=== PATIENT | female | born 1965 | race African-American/Black ===

== ENCOUNTER 2022-03-14 16:25 | Emergency (ER) | payer OTHER ==
[~2022-03-14] VITALS: Ht 157.5 cm; Wt 65.8 kg
--- NOTE | 2022-03-14 16:45 | NUR ---
Dr Hernandez at the bedside for MSE.
[2022-03-14] MEDS ORDERED: diphenhydrAMINE 25 MG CAP PO ONE ×4 (16:52→18:30)
[2022-03-14] MEDS ORDERED: HYDROCODONE/APAP 10-325 MG TABLET ONE (16:52)
[2022-03-14] MEDS ORDERED: KETOROLAC TROMETHAMINE 30 MG INJ ONE (16:52)
[2022-03-14] MEDS ORDERED: KETOROLAC TROMETHAMINE 30 MG INJ IM ONE (17:00)
[2022-03-14] MEDS ORDERED: HYDROCODONE/APAP 10-325 MG TABLET PO ONE (17:00)
--- NOTE | 2022-03-14 18:20 | NUR ---
Pt has red rash of neck and upper chest, Dr Hernandez aware and Bendryl ordered.
[2022-03-14] MEDS ORDERED: HYDR-3980 PO (18:23)
[2022-03-14] MEDS ORDERED: predniSONE 50 MG TABLET PO ONE (18:30)
[2022-03-14] MEDS ORDERED: predniSONE 50 MG TABLET ONE (18:32)
[2022-03-14] MEDS ORDERED: predniSONE 10 MG TABLET ONE (18:33)
--- NOTE | 2022-03-14 18:39 | NUR ---
Noted decreased redness of neck and upper chest, Pt denies shortness of breath/difficulty speaking or speaking. Pt's in the room.
[2022-03-14] MEDS ORDERED: PRED50TA PO (18:44)
[2022-03-14] MEDS ORDERED: DIPH-588 PO (18:47)
[2022-03-14] MEDS ORDERED: EPIN0.3A4 IM (18:56)
--- NOTE | 2022-03-14 18:56 | NUR ---
Pt's hives on neck/upper chest is completely disapeared. Dr cruz in the room re evaluating the pt.
--- NOTE | 2022-03-14 19:03 | NUR ---
Patient discharged to home in stable condition. Written and verbal after care instructions given. Patient verbalizes understanding of instructions. Stressed follow up or return to ER for worsening s/s.
[2022-03-14 19:04] VITALS: BP 112/67
== END 2022-03-14 19:04 | disposition home or self-care (01) ==
LOC: ER 16:27
DX: M16.11 Unilateral primary osteoarthritis, right hip (principal); Z88.0 Allergy status to penicillin; Z88.2 Allergy status to sulfonamides; Z88.8 Allergy status to other drugs, medicaments and biological substances
CPT/HCPCS: 72170; 96372; 99284; J1885; J7512 ×2; Q0163 ×2; A4663

== ENCOUNTER 2024-07-24 12:55 | Emergency (ER) | payer SELFPAY ==
[~2024-07-24] VITALS: Ht 157.5 cm; Wt 77.1 kg
[~2024-07-24 12:55] MED LIST: DIPH-588 PO; EPIN0.3A4 IM; HYDR-3980 PO; PRED50TA PO
[2024-07-24] MEDS ORDERED: AMLO5TAB4 PO ×2 (13:40→14:36)
[2024-07-24] MEDS ORDERED: PREG25CA19 PO (13:40)
[2024-07-24] MEDS ORDERED: TRAZ-252 PO (13:40)
[2024-07-24] MEDS ORDERED: DIVA125T2 PO (13:40)
[2024-07-24] MEDS ORDERED: DIVA500T2 PO ×2 (13:51→14:36)
[2024-07-24] MEDS ORDERED: PREG50CA PO ×2 (13:51→14:36)
[2024-07-24] MEDS ORDERED: LORAZEPAM 0.5 MG TABLET ONE (13:54)
[2024-07-24] MEDS ORDERED: PREGABALIN 25 MG CAPSULE ONE (13:55)
[2024-07-24] MEDS ORDERED: AMLODIPINE 5 MG TABLET ONE (13:55)
[2024-07-24 14:00] LABS: BASOPHILS # (AUTO) 0.1 K/UL (0.0-0.2); BASOPHILS % (AUTO) 1.9 % (0.0-2.0); EOSINOPHILS # (AUTO) 0.1 K/uL (0.0-0.7); EOSINOPHILS % (AUTO) 2.1 % (0.0-7.0); HEMATOCRIT 41.2 % (31.2-41.9); HEMOGLOBIN 13.7 g/dL (10.9-14.3); LYMPHOCYTES # (AUTO) 0.9 K/uL (0.8-4.8); MEAN CORPUSCULAR HEMOGLOBIN 31.3 uug (24.7-32.8); MEAN CORPUSCULAR HGB CONC 33 g/dL (32.3-35.6); MEAN CORPUSCULAR VOLUME 94.5 fL (75.5-95.3); MONOCYTES # (AUTO) 0.3 K/uL (0.1-1.30); MONOCYTES % (AUTO) 4.9 % (0.0-11.0); NEUTROPHILS # (AUTO) 5.3 K/uL (1.8-8.9); NEUTROPHILS % (AUTO) 78.1 % (38.5-71.5); PLATELET COUNT (AUTO) 317 K/uL (179-408); RED BLOOD CELL COUNT(AUTO) 4.36 MIL/uL (3.63-4.92); RED CELL DISTRIBUTION WIDTH 14.9 % (12.3-17.7); WHITE BLOOD COUNT (AUTO) 6.7 K/uL (3.8-11.8)
[2024-07-24 14:04] LABS: *BILIRUBIN,URIN NEGATIVE (NEGATIVE); *BLOOD, URINE NEGATIVE (NEGATIVE); *CLARITY,URINE CLEAR (CLEAR); *COLOR,URINE YELLOW (YELLOW); *KETONES,URINE NEGATIVE (NEGATIVE); *PROTEIN,URINE NEGATIVE (NEGATIVE); *UROBILINOGEN,URINE 0.2 E.U./dl (NORMAL); LEUKOCYTE ESTERASE ,URINE NEGATIVE (NEGATIVE); NITRITE, URINE NEGATIVE (NEGATIVE); PH,URINE 8.5 (5.0-8.0); UGLUCOSE NEGATIVE (NEGATIVE)
[2024-07-24] MEDS: PREGABALIN 25 MG CAPSULE PO ONE (14:04)
[2024-07-24] MEDS: LORAZEPAM 0.5 MG TABLET PO ONE (14:04)
[2024-07-24] MEDS: AMLODIPINE 5 MG TABLET PO ONE (14:06)
[2024-07-24 14:10] LABS: CALCIUM 9.4 mg/dL (8.5-10.1); CREATININE 0.6 mg/dL (0.6-1.3)
[2024-07-24] MEDS: VALPROIC ACID 250 MG CAPSULE PO ONE (14:12)
[2024-07-24 14:14] LABS: DIFFERENTIAL COMMENT 1
[2024-07-24 14:16] LABS: ALBUMIN 3.7 g/dL (3.4-5.0); BILIRUBIN,DIRECT 0.1 mg/dL (0.0-0.2); BILIRUBIN,TOTAL 0.3 mg/dL (0.2-1.0); TOTAL PROTEIN, SERUM 6.4 g/dL (6.4-8.2)
[2024-07-24] MEDS ORDERED: TRAZ-182 PO (14:36)
[2024-07-24 14:50] VITALS: BP 140/88; TEMP 97.8; O2SAT 100
== END 2024-07-24 14:57 | disposition home or self-care (01) ==
LOC: ER 12:56
DX: R51.9 Headache, unspecified (principal); Z76.0 Encounter for issue of repeat prescription; J45.909 Unspecified asthma, uncomplicated; G35 Multiple sclerosis; Z96.641 Presence of right artificial hip joint; Z79.52 Long term (current) use of systemic steroids; Z79.899 Other long term (current) drug therapy; Z88.0 Allergy status to penicillin; Z88.2 Allergy status to sulfonamides; Z88.5 Allergy status to narcotic agent; Z88.7 Allergy status to serum and vaccine
CPT/HCPCS: 36415; 85025; A4606; A4663

== ENCOUNTER 2024-07-31 21:20 | Inpatient (IN) | payer MEDICAID ==
[~2024-07-31] VITALS: Ht 157.5 cm; Wt 77.1 kg
[~2024-07-31 21:20] MED LIST changes: +AMLO5TAB4 PO; +DIVA500T2 PO; +PREG50CA PO; +TRAZ-182 PO; +TRAZ-252 PO
[2024-07-31] MEDS ORDERED: MORPHINE SULFATE 2 MG/1 ML DISP.SYRIN ONE (22:09)
[2024-07-31] MEDS ORDERED: ONDANSETRON 4 MG/2 ML VIAL ONE (22:09)
[2024-07-31] MEDS: MORPHINE SULFATE 2 MG/1 ML DISP.SYRIN IV ONE (22:15)
[2024-07-31] MEDS: ONDANSETRON 4 MG/2 ML VIAL IV ONE (22:15)
[2024-07-31 22:18] LABS: *BILIRUBIN,URIN NEGATIVE (NEGATIVE); *BLOOD, URINE NEGATIVE (NEGATIVE); *CLARITY,URINE SLIGHTLY CLOUDY (CLEAR); *COLOR,URINE YELLOW (YELLOW); *KETONES,URINE 1+ (NEGATIVE); *PROTEIN,URINE NEGATIVE (NEGATIVE); *UROBILINOGEN,URINE 0.2 E.U./dl (NORMAL); LEUKOCYTE ESTERASE ,URINE TRACE (NEGATIVE); NITRITE, URINE NEGATIVE (NEGATIVE); UGLUCOSE NEGATIVE (NEGATIVE)
[2024-07-31 22:22] LABS: BASOPHILS % (AUTO) 0.5 % (0.0-2.0); CALCIUM 9.9 mg/dL (8.5-10.1); CREATININE 0.8 mg/dL (0.6-1.3); EOSINOPHILS # (AUTO) 0.2 K/uL (0.0-0.7); EOSINOPHILS % (AUTO) 2.3 % (0.0-7.0); HEMATOCRIT 45.6 % (31.2-41.9); HEMOGLOBIN 15.1 g/dL (10.9-14.3); LYMPHOCYTES # (AUTO) 1.6 K/uL (0.8-4.8); LYMPHOCYTES % (AUTO) 23.2 % (20.5-51.5); MEAN CORPUSCULAR HEMOGLOBIN 31.3 uug (24.7-32.8); MEAN CORPUSCULAR HGB CONC 33 g/dL (32.3-35.6); MEAN CORPUSCULAR VOLUME 94.6 fL (75.5-95.3); MONOCYTES # (AUTO) 0.8 K/uL (0.1-1.30); NEUTROPHILS # (AUTO) 4.3 K/uL (1.8-8.9); PLATELET COUNT (AUTO) 335 K/uL (179-408); POTASSIUM 3.3 mmol/L (3.5-5.1); RED BLOOD CELL COUNT(AUTO) 4.82 MIL/uL (3.63-4.92); RED CELL DISTRIBUTION WIDTH 14.9 % (12.3-17.7); WHITE BLOOD COUNT (AUTO) 6.8 K/uL (3.8-11.8)
[2024-07-31 22:23] LABS: DIFFERENTIAL COMMENT 1
[2024-07-31 22:28] LABS: ALBUMIN 4.2 g/dL (3.4-5.0); BILIRUBIN,TOTAL 0.4 mg/dL (0.2-1.0); TOTAL PROTEIN, SERUM 7.6 g/dL (6.4-8.2)
[2024-07-31 22:30] LABS: *AMPHETAMINE, URINE NEGATIVE (NEGATIVE); *BARBITURATE, URINE NEGATIVE (NEGATIVE); *BENZODIAZEPINE, URINE NEGATIVE (NEGATIVE); *CANNABINOID, URINE NEGATIVE (NEGATIVE); *COCCAINE, URINE NEGATIVE (NEGATIVE); *OPIATE, URINE NEGATIVE (NEGATIVE); *PHENCYCLIDINE SCREEN,URINE NEGATIVE (NEGATIVE); FENTANYL, URINE NEGATIVE (NEGATIVE)
[2024-07-31 22:34] LABS: BACTERIA,URINE FEW /HPF (NONE SEEN); SQUAMOUS EPITHELIAL CELL,UR FEW /HPF (NONE SEEN); URINE AMORPHOUS URATE MODERATE /HPF; WBC,URINE 0-3 /HPF (0-3)
[2024-07-31 22:35] LABS: RBC,URINE NONE SEEN /HPF (0-3)
[2024-08-01] MEDS ORDERED: KETOROLAC TROMETHAMINE 30 MG INJ ONE (00:51)
[2024-08-01] MEDS: KETOROLAC TROMETHAMINE 30 MG INJ IVP ONE (00:57)
[2024-08-01] MEDS: IV NS 1000 ML 1,000 ML IV ONE (00:57)
[2024-08-01] MEDS ORDERED: GABA-532 PO (02:40)
[2024-08-01] MEDS ORDERED: GABAPENTIN 300 MG CAPSULE ONE (02:54)
[2024-08-01] MEDS: GABAPENTIN 300 MG CAPSULE PO ONE (02:57)
[2024-08-01] MEDS: POTASSIUM CHLORIDE 20 MEQ POWDER PACKET PO ONE ×2 (03:00→05:01)
[2024-08-01] MEDS ORDERED: ONDANSETRON 4 MG/2 ML VIAL IV PRN (03:00)
[2024-08-01] MEDS ORDERED: MAGNESIUM HYDROXIDE 30 ML LIQUID UDC PO PRN (03:00)
[2024-08-01] MEDS ORDERED: HYDROCODONE/APAP 10-325 MG TABLET PO PRN (03:00)
[2024-08-01 04:29] VITALS: BP 129/83; TEMP 98.1; O2SAT 95
[2024-08-01] MEDS: IV D5W 1000ML 1,000 ML IV SCH (04:30)
[2024-08-01 06:00] VITALS: BP 103/66; TEMP 97.5; O2SAT 94
[2024-08-01] MEDS: AMLODIPINE 5 MG TABLET PO SCH (08:11)
[2024-08-01] MEDS: GABAPENTIN 100 MG CAPSULE PO SCH (08:11)
[2024-08-01] MEDS: DIVALPROEX 500 MG TABLET.DR PO SCH (08:11)
[2024-08-01] MEDS ORDERED: MELA3CAP2 PO (09:53)
[2024-08-01] MEDS ORDERED: TRAZ-182 PO (11:17)
[2024-08-01 11:39] VITALS: BP 112/68; TEMP 98.4; O2SAT 96
[2024-08-01 12:18] LABS: CALCIUM 9.5 mg/dL (8.5-10.1); CREATININE 0.6 mg/dL (0.6-1.3); POTASSIUM 4.4 mmol/L (3.5-5.1)
[2024-08-01] MEDS ORDERED: methylPREDNISolone SOD SUCC 1,000 MG in IV DEXTROSE 5% 250 ML IV SCH ×2 (15:45→16:00)
[2024-08-01 16:25] VITALS: BP 100/71; TEMP 98.4; O2SAT 94
[2024-08-01] MEDS: methylPREDNISolone SOD SUCC 1,000 MG in IV DEXTROSE 5% 250 ML IV SCH (16:44)
[2024-08-01] MEDS ORDERED: TRAZODONE 50 MG TABLET PO SCH (18:00)
[2024-08-01 20:00] VITALS: BP 129/78; TEMP 98.8; O2SAT 94
[2024-08-01] MEDS: MELATONIN 3 MG TABLET PO SCH (20:47)
[2024-08-01] MEDS: MORPHINE SULFATE 2 MG/1 ML DISP.SYRIN IV PRN (21:30)
[2024-08-01] MEDS: TRAZODONE 50 MG TABLET PO PRN (21:51)
[2024-08-02 06:00] VITALS: BP 141/82; TEMP 98.8; O2SAT 95
[2024-08-02 07:00] LABS: HEMATOCRIT 43.2 % (31.2-41.9); HEMOGLOBIN 14.5 g/dL (10.9-14.3); LYMPHOCYTES # (AUTO) 0.7 K/uL (0.8-4.8); LYMPHOCYTES % (AUTO) 8.7 % (20.5-51.5); MEAN CORPUSCULAR HGB CONC 34 g/dL (32.3-35.6); MONOCYTES % (AUTO) 0.5 % (0.0-11.0); NEUTROPHILS # (AUTO) 7.4 K/uL (1.8-8.9); NEUTROPHILS % (AUTO) 90.8 % (38.5-71.5); PLATELET COUNT (AUTO) 301 K/uL (179-408); RED BLOOD CELL COUNT(AUTO) 4.54 MIL/uL (3.63-4.92); RED CELL DISTRIBUTION WIDTH 14.3 % (12.3-17.7); WHITE BLOOD COUNT (AUTO) 8.1 K/uL (3.8-11.8)
[2024-08-02 07:16] LABS: DIFFERENTIAL COMMENT 1
[2024-08-02 08:03] LABS: MAGNESIUM 2.2 mg/dL (1.8-2.4)
[2024-08-02 08:28] LABS: CALCIUM 10.4 mg/dL (8.5-10.1); CREATININE 0.6 mg/dL (0.6-1.3); POTASSIUM 4.8 mmol/L (3.5-5.1)
[2024-08-02 11:08] VITALS: BP 146/78; TEMP 98.8; O2SAT 98
[2024-08-02 14:12] LABS: THYROID STIMULATING HORMONE 0.228 mIU/mL (0.358-3.740)
[2024-08-02] MEDS: diphenhydrAMINE 25 MG/10 ML UDC PO PRN (14:17)
[2024-08-02 16:10] VITALS: BP 150/72; TEMP 98.6; O2SAT 99
[2024-08-02 20:00] VITALS: BP 140/69; TEMP 98.1; O2SAT 94
[2024-08-03 04:30] VITALS: BP 139/82; TEMP 98.4; O2SAT 95
[2024-08-03 06:55] LABS: HEMATOCRIT 43.3 % (31.2-41.9); HEMOGLOBIN 14.5 g/dL (10.9-14.3); LYMPHOCYTES # (AUTO) 0.6 K/uL (0.8-4.8); LYMPHOCYTES % (AUTO) 4.7 % (20.5-51.5); MEAN CORPUSCULAR HEMOGLOBIN 31.9 uug (24.7-32.8); MEAN CORPUSCULAR HGB CONC 34 g/dL (32.3-35.6); MEAN CORPUSCULAR VOLUME 95.1 fL (75.5-95.3); MONOCYTES # (AUTO) 0.1 K/uL (0.1-1.30); MONOCYTES % (AUTO) 0.9 % (0.0-11.0); NEUTROPHILS # (AUTO) 11.1 K/uL (1.8-8.9); NEUTROPHILS % (AUTO) 94.4 % (38.5-71.5); PLATELET COUNT (AUTO) 305 K/uL (179-408); RED BLOOD CELL COUNT(AUTO) 4.55 MIL/uL (3.63-4.92); RED CELL DISTRIBUTION WIDTH 14.6 % (12.3-17.7); WHITE BLOOD COUNT (AUTO) 11.8 K/uL (3.8-11.8)
[2024-08-03 07:12] LABS: CALCIUM 10.2 mg/dL (8.5-10.1); CREATININE 0.6 mg/dL (0.6-1.3)
[2024-08-03 07:13] LABS: DIFFERENTIAL COMMENT 1
[2024-08-03 07:20] LABS: POTASSIUM 4.5 mmol/L (3.5-5.1)
[2024-08-03 11:36] VITALS: BP 149/85; TEMP 99.2; O2SAT 95
[2024-08-03] MEDS ORDERED: IBUPROFEN 400 MG TABLET PO PRN (15:15)
[2024-08-03] MEDS: ACETAMINOPHEN 325 MG TABLET PO PRN (15:32)
[2024-08-03 15:52] VITALS: BP 127/65; TEMP 98.4; O2SAT 96
[2024-08-03] MEDS: PREGABALIN 50 MG CAPSULE PO SCH (17:09)
[2024-08-03 19:00] VITALS: BP 143/85; TEMP 98; O2SAT 95
[2024-08-03] MEDS: KETOROLAC TROMETHAMINE 15 MG INJ IVP ONE (21:54)
[2024-08-04 06:00] VITALS: BP 132/78; TEMP 97.5; O2SAT 92
[2024-08-04 07:23] LABS: HEMATOCRIT 41.7 % (31.2-41.9); HEMOGLOBIN 13.8 g/dL (10.9-14.3); LYMPHOCYTES # (AUTO) 0.5 K/uL (0.8-4.8); LYMPHOCYTES % (AUTO) 4.4 % (20.5-51.5); MEAN CORPUSCULAR HEMOGLOBIN 31.3 uug (24.7-32.8); MEAN CORPUSCULAR HGB CONC 33 g/dL (32.3-35.6); MEAN CORPUSCULAR VOLUME 94.5 fL (75.5-95.3); MONOCYTES # (AUTO) 0.1 K/uL (0.1-1.30); MONOCYTES % (AUTO) 0.6 % (0.0-11.0); NEUTROPHILS # (AUTO) 11.3 K/uL (1.8-8.9); PLATELET COUNT (AUTO) 315 K/uL (179-408); RED BLOOD CELL COUNT(AUTO) 4.42 MIL/uL (3.63-4.92); RED CELL DISTRIBUTION WIDTH 14.6 % (12.3-17.7); WHITE BLOOD COUNT (AUTO) 11.9 K/uL (3.8-11.8)
[2024-08-04 08:19] LABS: DIFFERENTIAL COMMENT 1
[2024-08-04 08:31] VITALS: BP 140/76; TEMP 97.7; O2SAT 95
[2024-08-04 09:04] LABS: CALCIUM 9.5 mg/dL (8.5-10.1); CREATININE 0.7 mg/dL (0.6-1.3); POTASSIUM 4.1 mmol/L (3.5-5.1)
[2024-08-04] MEDS ORDERED: METH4TAB3 PO (09:46)
[2024-08-04 11:11] LABS: MAGNESIUM 2.2 mg/dL (1.8-2.4); PHOSPHOROUS 4.4 mg/dL (2.5-4.9)
[2024-08-04 11:45] VITALS: BP 142/67; TEMP 97.8; O2SAT 96
[2024-08-04 15:43] VITALS: BP 149/87; TEMP 97.8; O2SAT 97
[2024-08-05 09:07] LABS: METHYLMALONIC ACID 101 nmol/L (0-378)
== END 2024-08-04 16:25 | disposition home or self-care (01) | DRG 43 ==
LOC: ER 21:22 → MEDSURG3 08-01 03:35
PROVIDERS: ATTEND Nurse Practitioner Acute Care
DX: G35 Multiple sclerosis (principal); E87.0 Hyperosmolality and hypernatremia; E87.6 Hypokalemia; E86.1 Hypovolemia; J45.909 Unspecified asthma, uncomplicated; E05.90 Thyrotoxicosis, unspecified without thyrotoxic crisis or storm; R26.2 Difficulty in walking, not elsewhere classified; Z88.6 Allergy status to analgesic agent; Z88.0 Allergy status to penicillin; Z88.2 Allergy status to sulfonamides; E86.0 Dehydration; I10 Essential (primary) hypertension; Z79.899 Other long term (current) drug therapy
CPT/HCPCS: 36415; 70450; 83735; 83921; 84100; 84443; 85025; A4663; G0378; J1885; J2270; J2405; J2919; J7040; J7050; J7070; Q0163

== ENCOUNTER 2024-08-07 21:12 | Emergency (ER) | payer MEDICAID ==
[~2024-08-07] VITALS: Ht 157.5 cm; Wt 74.8 kg
[~2024-08-07 21:12] MED LIST changes: -DIPH-588 PO; -EPIN0.3A4 IM; -HYDR-3980 PO; +MELA3CAP2 PO; +METH4TAB3 PO; -PRED50TA PO; -TRAZ-252 PO
[2024-08-07 22:26] LABS: BASOPHILS % (AUTO) 0.5 % (0.0-2.0); HEMATOCRIT 44.7 % (31.2-41.9); LYMPHOCYTES % (AUTO) 12.5 % (20.5-51.5); MEAN CORPUSCULAR HEMOGLOBIN 31.6 uug (24.7-32.8); MEAN CORPUSCULAR HGB CONC 33 g/dL (32.3-35.6); MEAN CORPUSCULAR VOLUME 94.5 fL (75.5-95.3); MONOCYTES # (AUTO) 0.5 K/uL (0.1-1.30); MONOCYTES % (AUTO) 5.9 % (0.0-11.0); NEUTROPHILS # (AUTO) 6.6 K/uL (1.8-8.9); NEUTROPHILS % (AUTO) 81.1 % (38.5-71.5); PLATELET COUNT (AUTO) 310 K/uL (179-408); RED BLOOD CELL COUNT(AUTO) 4.73 MIL/uL (3.63-4.92); RED CELL DISTRIBUTION WIDTH 14.1 % (12.3-17.7); WHITE BLOOD COUNT (AUTO) 8.1 K/uL (3.8-11.8)
[2024-08-07 22:31] LABS: DIFFERENTIAL COMMENT 1
[2024-08-07] MEDS ORDERED: diphenhydrAMINE 50 MG/1 ML VIAL ONE (22:34)
[2024-08-07] MEDS ORDERED: MORPHINE SULFATE 4 MG/1 ML DISP.SYRIN ONE (22:34)
[2024-08-07 22:38] LABS: CALCIUM 9.5 mg/dL (8.5-10.1); CARBON DIOXIDE 32 mmol/L (21-32); CHLORIDE 104 mmol/L (98-107); CREATININE 0.6 mg/dL (0.6-1.3); GLUCOSE 115 mg/dL (74-106); POTASSIUM 3.5 mmol/L (3.5-5.1); SODIUM SERUM 143 mmol/L (136-145); UREA NITROGEN, BLOOD 15 mg/dL (7-18)
[2024-08-07 22:47] LABS: ALANINE AMINOTRANSFERASE 25 U/L (14-59); ALBUMIN 3.6 g/dL (3.4-5.0); ALKALINE PHOSPHATASE 94 U/L (50-136); ASPARTATE AMINOTRANSFERASE < 5 U/L (15-37); BILIRUBIN,DIRECT 0.2 mg/dL (0.0-0.2); BILIRUBIN,TOTAL 0.4 mg/dL (0.2-1.0); TOTAL PROTEIN, SERUM 6.7 g/dL (6.4-8.2)
[2024-08-07] MEDS: diphenhydrAMINE 50 MG/1 ML VIAL IV ONE (23:00)
[2024-08-07] MEDS: MORPHINE SULFATE 2 MG/1 ML DISP.SYRIN IV ONE (23:00)
[2024-08-08] MEDS ORDERED: MORP15TA PO (00:53)
[2024-08-08] MEDS: ONDANSETRON 4 MG/2 ML VIAL IV ONE (01:00)
[2024-08-08] MEDS: MORPHINE SULFATE 4 MG/1 ML DISP.SYRIN IV ONE ×2 (01:00→02:49)
[2024-08-08] MEDS ORDERED: ONDANSETRON 4 MG/2 ML VIAL ONE (01:00)
[2024-08-08] MEDS ORDERED: MORPHINE SULFATE 4 MG/1 ML DISP.SYRIN ONE ×2 (01:01→02:44)
[2024-08-08] MEDS: diphenhydrAMINE 50 MG/1 ML VIAL IV ONE ×2 (02:15→02:49)
[2024-08-08] MEDS ORDERED: diphenhydrAMINE 50 MG/1 ML VIAL ONE ×2 (02:16→02:46)
[2024-08-08 03:52] VITALS: BP 128/100; TEMP 98.2; O2SAT 99
== END 2024-08-08 03:00 | disposition home or self-care (01) ==
LOC: ER 21:13
DX: R51.9 Headache, unspecified (principal); R42 Dizziness and giddiness; J45.909 Unspecified asthma, uncomplicated; G35 Multiple sclerosis; I10 Essential (primary) hypertension; Z79.899 Other long term (current) drug therapy; Z79.52 Long term (current) use of systemic steroids; Z88.0 Allergy status to penicillin; Z88.2 Allergy status to sulfonamides; Z88.5 Allergy status to narcotic agent; Z88.7 Allergy status to serum and vaccine
CPT/HCPCS: 99285; 96374; 71045; 96375; 80076; 80048; 85025; 85730; 84484; 36415; 93005; 96376; J1200 ×3; J2270 ×3; J2405; A4606; A4663

== ENCOUNTER 2024-08-31 21:20 | Emergency (ER) | payer BC, MEDICAID ==
[~2024-08-31] VITALS: Ht 157.5 cm; Wt 74.8 kg
[~2024-08-31 21:20] MED LIST changes: +MORP15TA PO
[2024-08-31] MEDS ORDERED: KETOROLAC TROMETHAMINE 15 MG INJ ONE (23:01)
[2024-08-31 23:39] LABS: BASOPHILS % (AUTO) 0.7 % (0.0-2.0); EOSINOPHILS # (AUTO) 0.1 K/uL (0.0-0.7); EOSINOPHILS % (AUTO) 1.2 % (0.0-7.0); HEMATOCRIT 40.7 % (31.2-41.9); HEMOGLOBIN 13.7 g/dL (10.9-14.3); LYMPHOCYTES # (AUTO) 1.9 K/uL (0.8-4.8); LYMPHOCYTES % (AUTO) 35.7 % (20.5-51.5); MEAN CORPUSCULAR HGB CONC 34 g/dL (32.3-35.6); MONOCYTES # (AUTO) 0.8 K/uL (0.1-1.30); MONOCYTES % (AUTO) 14.6 % (0.0-11.0); NEUTROPHILS # (AUTO) 2.5 K/uL (1.8-8.9); NEUTROPHILS % (AUTO) 47.8 % (38.5-71.5); PLATELET COUNT (AUTO) 306 K/uL (179-408); RED BLOOD CELL COUNT(AUTO) 4.28 MIL/uL (3.63-4.92); RED CELL DISTRIBUTION WIDTH 15.1 % (12.3-17.7); WHITE BLOOD COUNT (AUTO) 5.2 K/uL (3.8-11.8)
[2024-08-31] MEDS: IV NORMAL SALINE 500 ML IV ONE (23:51)
[2024-08-31] MEDS: KETOROLAC TROMETHAMINE 15 MG INJ IVP ONE (23:52)
[2024-09-01] MEDS ORDERED: GABAPENTIN 300 MG CAPSULE ONE (00:09)
[2024-09-01 00:10] LABS: *BILIRUBIN,URIN NEGATIVE (NEGATIVE); *BLOOD, URINE NEGATIVE (NEGATIVE); *CLARITY,URINE CLEAR (CLEAR); *COLOR,URINE YELLOW (YELLOW); *KETONES,URINE 1+ (NEGATIVE); *PROTEIN,URINE NEGATIVE (NEGATIVE); *UROBILINOGEN,URINE 0.2 E.U./dl (NORMAL); LEUKOCYTE ESTERASE ,URINE NEGATIVE (NEGATIVE); NITRITE, URINE NEGATIVE (NEGATIVE); PH,URINE 6.5 (5.0-8.0); UGLUCOSE NEGATIVE (NEGATIVE)
[2024-09-01] MEDS: GABAPENTIN 300 MG CAPSULE PO ONE (00:14)
[2024-09-01 00:28] LABS: BACTERIA,URINE FEW /HPF (NONE SEEN); RBC,URINE 0-3 /HPF (0-3); WBC,URINE NONE SEEN /HPF (0-3)
[2024-09-01 00:29] LABS: CALCIUM OXALATE CRYSTALS,UR MANY /HPF (NONE SEEN); SQUAMOUS EPITHELIAL CELL,UR NONE SEEN /HPF (NONE SEEN); URIC ACID CRYSTALS,URINE RARE /HPF (NONE SEEN)
[2024-09-01 00:30] LABS: MUCUS,URINE FEW /LPF (0-FEW); WAXY CASTS,URINE 0-3 /LPF (NONE SEEN)
[2024-09-01 00:34] LABS: ALBUMIN 3.6 g/dL (3.4-5.0); BILIRUBIN,TOTAL 0.3 mg/dL (0.2-1.0); CALCIUM 9.6 mg/dL (8.5-10.1); CREATININE 0.8 mg/dL (0.6-1.3); MAGNESIUM 2.3 mg/dL (1.8-2.4); POTASSIUM 4.5 mmol/L (3.5-5.1); TOTAL PROTEIN, SERUM 6.7 g/dL (6.4-8.2)
[2024-09-01 00:36] LABS: C-REACTIVE PROTEIN 0.43 mg/dL (0.00-0.30)
[2024-09-01 00:57] LABS: THYROID STIMULATING HORMONE 2.527 mIU/mL (0.358-3.740)
[2024-09-01] MEDS ORDERED: MORP15TA PO (01:29)
[2024-09-01 02:13] VITALS: BP 128/82; TEMP 98.1; O2SAT 98
== END 2024-09-01 02:14 | disposition home or self-care (01) ==
LOC: ER 21:20
DX: M79.18 Myalgia, other site (principal); M79.606 Pain in leg, unspecified; R53.1 Weakness; R11.0 Nausea; R42 Dizziness and giddiness; R94.31 Abnormal electrocardiogram [ECG] [EKG]; G35 Multiple sclerosis; J45.909 Unspecified asthma, uncomplicated; Z79.899 Other long term (current) drug therapy; Z88.0 Allergy status to penicillin; Z88.2 Allergy status to sulfonamides; Z88.5 Allergy status to narcotic agent; Z88.7 Allergy status to serum and vaccine
CPT/HCPCS: 99285; 96374; 70450; 96361; 80053; 81001; 83880; 83735; 84443; 85025; 86140; 84484; 36415; 93005; J1885; J7040; A4606; A4663

== ENCOUNTER 2025-01-01 13:48 | Inpatient (IN) | payer BC ==
[~2025-01-01] VITALS: Ht 157.5 cm; Wt 72.6 kg
[2025-01-01 14:30] LABS: BASOPHILS # (AUTO) 0.1 K/UL (0.0-0.2); BASOPHILS % (AUTO) 0.3 % (0.0-2.0); EOSINOPHILS % (AUTO) 0.1 % (0.0-7.0); HEMATOCRIT 41.9 % (31.2-41.9); LYMPHOCYTES # (AUTO) 0.9 K/uL (0.8-4.8); LYMPHOCYTES % (AUTO) 4.9 % (20.5-51.5); MEAN CORPUSCULAR HEMOGLOBIN 31.6 uug (24.7-32.8); MEAN CORPUSCULAR HGB CONC 33 g/dL (32.3-35.6); MONOCYTES % (AUTO) 10.7 % (0.0-11.0); NEUTROPHILS # (AUTO) 15.6 K/uL (1.8-8.9); PLATELET COUNT (AUTO) 270 K/uL (179-408); RED BLOOD CELL COUNT(AUTO) 4.41 MIL/uL (3.63-4.92); RED CELL DISTRIBUTION WIDTH 13.9 % (12.3-17.7); WHITE BLOOD COUNT (AUTO) 18.5 K/uL (3.8-11.8)
[2025-01-01 14:39] LABS: CALCIUM 9.3 mg/dL (8.5-10.1); CREATININE 0.6 mg/dL (0.6-1.3); POTASSIUM 3.7 mmol/L (3.5-5.1)
[2025-01-01 14:44] LABS: DIFFERENTIAL COMMENT 1
[2025-01-01 14:45] LABS: ALBUMIN 3.4 g/dL (3.4-5.0); BILIRUBIN,DIRECT 0.2 mg/dL (0.0-0.2); BILIRUBIN,TOTAL 0.4 mg/dL (0.2-1.0)
[2025-01-01] MEDS ORDERED: LIDOCAINE 1%-EPI 1:100,000 20 ML VIAL IJ ONE (14:45)
[2025-01-01 14:46] LABS: ERYTHROCYTE SEDIMENTATION RATE < 1 MM/HR (0-20)
[2025-01-01 14:55] LABS: C-REACTIVE PROTEIN 2.14 mg/dL (0.00-0.30)
[2025-01-01] MEDS ORDERED: KETOROLAC TROMETHAMINE 30 MG INJ ONE (15:41)
[2025-01-01] MEDS ORDERED: LORAZEPAM 2 MG/1 ML VIAL ONE (15:41)
[2025-01-01] MEDS: KETOROLAC TROMETHAMINE 30 MG INJ IVP ONE (15:42)
[2025-01-01] MEDS: LORAZEPAM 2 MG/1 ML VIAL IV ONE (15:42)
[2025-01-01 16:14] LABS: *BILIRUBIN,URIN NEGATIVE (NEGATIVE); *BLOOD, URINE 2+ (NEGATIVE); *CLARITY,URINE CLEAR (CLEAR); *COLOR,URINE YELLOW (YELLOW); *KETONES,URINE 1+ (NEGATIVE); *PROTEIN,URINE TRACE (NEGATIVE); LEUKOCYTE ESTERASE ,URINE 1+ (NEGATIVE); NITRITE, URINE NEGATIVE (NEGATIVE); PH,URINE 6.5 (5.0-8.0); UGLUCOSE NEGATIVE (NEGATIVE)
[2025-01-01] MEDS: IV NORMAL SALINE 500 ML IV ONE (16:14)
[2025-01-01 17:01] LABS: BACTERIA,URINE FEW /HPF (NONE SEEN); SQUAMOUS EPITHELIAL CELL,UR FEW /HPF (NONE SEEN); WBC,URINE 0-3 /HPF (0-3)
[2025-01-01] MEDS: IV NORMAL SALINE 500 ML BAG IV ONE (17:19)
[2025-01-01] MEDS ORDERED: NOREPINEPHRINE 8MG/NS 250ML 250 ML IV PRN (20:15)
[2025-01-01] MEDS: IV NS 1000 ML 1,000 ML IV ONE (20:42)
[2025-01-01] MEDS ORDERED: NOREPINEPHRINE 8MG/NS 250ML 0 ML IV ONE (20:50)
[2025-01-01] MEDS ORDERED: REMEDY ESSENTIAL ZINC PASTE 113 GM TP PRN (22:45)
[2025-01-01] MEDS ORDERED: ONDANSETRON 4 MG/2 ML VIAL IV PRN (22:45)
[2025-01-01] MEDS: IV LACTATED RINGERS SOLUTION 1,000 ML IV SCH (23:57)
[2025-01-02] VITALS (8 sets, daily range): BP systolic 100–139; BP diastolic 43–74; TEMP 97.9–99.7; O2SAT 97–100
[2025-01-02] MEDS: ACETAMINOPHEN 325 MG TABLET PO PRN (06:09)
[2025-01-02 07:11] LABS: BASOPHILS % (AUTO) 0.2 % (0.0-2.0); EOSINOPHILS # (AUTO) 0.2 K/uL (0.0-0.7); EOSINOPHILS % (AUTO) 1.5 % (0.0-7.0); HEMATOCRIT 37.4 % (31.2-41.9); HEMOGLOBIN 12.4 g/dL (10.9-14.3); LYMPHOCYTES # (AUTO) 1.6 K/uL (0.8-4.8); LYMPHOCYTES % (AUTO) 10.5 % (20.5-51.5); MEAN CORPUSCULAR HEMOGLOBIN 31.8 uug (24.7-32.8); MEAN CORPUSCULAR HGB CONC 33 g/dL (32.3-35.6); MONOCYTES # (AUTO) 1.1 K/uL (0.1-1.30); MONOCYTES % (AUTO) 7.2 % (0.0-11.0); NEUTROPHILS # (AUTO) 12.3 K/uL (1.8-8.9); NEUTROPHILS % (AUTO) 80.6 % (38.5-71.5); PLATELET COUNT (AUTO) 233 K/uL (179-408); RED CELL DISTRIBUTION WIDTH 14.2 % (12.3-17.7); WHITE BLOOD COUNT (AUTO) 15.3 K/uL (3.8-11.8)
[2025-01-02 07:26] LABS: AMMONIA 12 umol/L (11-32)
[2025-01-02 07:28] LABS: ALANINE AMINOTRANSFERASE 17 U/L (14-59); ALBUMIN 2.9 g/dL (3.4-5.0); ALKALINE PHOSPHATASE 79 U/L (50-136); ASPARTATE AMINOTRANSFERASE 17 U/L (15-37); BILIRUBIN,TOTAL 0.4 mg/dL (0.2-1.0); CARBON DIOXIDE 27 mmol/L (21-32); CHLORIDE 107 mmol/L (98-107); CREATININE 0.5 mg/dL (0.6-1.3); GLUCOSE 95 mg/dL (74-106); PHOSPHOROUS 2.8 mg/dL (2.5-4.9); POTASSIUM 3.4 mmol/L (3.5-5.1); SODIUM SERUM 143 mmol/L (136-145); TOTAL PROTEIN, SERUM 5.3 g/dL (6.4-8.2); UREA NITROGEN, BLOOD 11 mg/dL (7-18)
[2025-01-02 07:30] LABS: DIFFERENTIAL COMMENT 1
[2025-01-02 07:51] LABS: CALCIUM 8.8 mg/dL (8.5-10.1)
[2025-01-02] MEDS: DIVALPROEX 500 MG TABLET.DR PO SCH (08:23)
[2025-01-02] MEDS: ENOXAPARIN SODIUM 40 MG/0.4 ML DISP.SYRIN SQ SCH (08:23)
[2025-01-02] MEDS: POTASSIUM CHLORIDE 20 MEQ TAB.PRT.SR PO ONE (10:46)
[2025-01-02] MEDS ORDERED: CEFTRIAXONE 1 G VIAL IM SCH (14:30)
[2025-01-02] MEDS: CEFTRIAXONE 1 G in IV DEXTROSE 5% 50 ML IV SCH (15:51)
[2025-01-03] VITALS (9 sets, daily range): BP systolic 110–144; BP diastolic 66–75; TEMP 97.7–99.1; O2SAT 98–99
[2025-01-03 06:39] LABS: BASOPHILS % (AUTO) 0.4 % (0.0-2.0); EOSINOPHILS # (AUTO) 0.3 K/uL (0.0-0.7); EOSINOPHILS % (AUTO) 2.7 % (0.0-7.0); HEMATOCRIT 35.7 % (31.2-41.9); HEMOGLOBIN 12.1 g/dL (10.9-14.3); LYMPHOCYTES # (AUTO) 2.1 K/uL (0.8-4.8); LYMPHOCYTES % (AUTO) 18.2 % (20.5-51.5); MEAN CORPUSCULAR HEMOGLOBIN 32.1 uug (24.7-32.8); MEAN CORPUSCULAR HGB CONC 34 g/dL (32.3-35.6); MEAN CORPUSCULAR VOLUME 95.1 fL (75.5-95.3); MONOCYTES # (AUTO) 1.1 K/uL (0.1-1.30); MONOCYTES % (AUTO) 9.2 % (0.0-11.0); NEUTROPHILS % (AUTO) 69.5 % (38.5-71.5); PLATELET COUNT (AUTO) 231 K/uL (179-408); RED BLOOD CELL COUNT(AUTO) 3.75 MIL/uL (3.63-4.92); RED CELL DISTRIBUTION WIDTH 13.7 % (12.3-17.7); WHITE BLOOD COUNT (AUTO) 11.5 K/uL (3.8-11.8)
[2025-01-03 07:04] LABS: CARBON DIOXIDE 27 mmol/L (21-32); CHLORIDE 109 mmol/L (98-107); CREATININE 0.4 mg/dL (0.6-1.3); GLUCOSE 93 mg/dL (74-106); MAGNESIUM 2.1 mg/dL (1.8-2.4); PHOSPHOROUS 3.5 mg/dL (2.5-4.9); POTASSIUM 3.5 mmol/L (3.5-5.1); SODIUM SERUM 146 mmol/L (136-145); UREA NITROGEN, BLOOD 7 mg/dL (7-18)
[2025-01-03 07:15] LABS: DIFFERENTIAL COMMENT 1
[2025-01-03] MEDS ORDERED: CEFTRIAXONE 1 G VIAL IV SCH (14:30)
[2025-01-03] MEDS: TRAZODONE 50 MG TABLET PO PRN (21:29)
[2025-01-04] VITALS (9 sets, daily range): BP systolic 107–147; BP diastolic 56–104; TEMP 97.5–99.1; O2SAT 94–99
[2025-01-04 06:44] LABS: BASOPHILS % (AUTO) 0.3 % (0.0-2.0); EOSINOPHILS # (AUTO) 0.4 K/uL (0.0-0.7); EOSINOPHILS % (AUTO) 5.7 % (0.0-7.0); HEMATOCRIT 37.6 % (31.2-41.9); HEMOGLOBIN 12.7 g/dL (10.9-14.3); LYMPHOCYTES # (AUTO) 1.9 K/uL (0.8-4.8); LYMPHOCYTES % (AUTO) 26.9 % (20.5-51.5); MEAN CORPUSCULAR HEMOGLOBIN 32.4 uug (24.7-32.8); MEAN CORPUSCULAR HGB CONC 34 g/dL (32.3-35.6); MEAN CORPUSCULAR VOLUME 96.1 fL (75.5-95.3); MONOCYTES # (AUTO) 0.7 K/uL (0.1-1.30); MONOCYTES % (AUTO) 10.8 % (0.0-11.0); NEUTROPHILS # (AUTO) 3.9 K/uL (1.8-8.9); NEUTROPHILS % (AUTO) 56.3 % (38.5-71.5); PLATELET COUNT (AUTO) 256 K/uL (179-408); RED BLOOD CELL COUNT(AUTO) 3.92 MIL/uL (3.63-4.92); RED CELL DISTRIBUTION WIDTH 13.9 % (12.3-17.7); WHITE BLOOD COUNT (AUTO) 6.9 K/uL (3.8-11.8)
[2025-01-04 06:45] LABS: DIFFERENTIAL COMMENT 1
[2025-01-04 06:55] LABS: CALCIUM 9.7 mg/dL (8.5-10.1); CREATININE 0.6 mg/dL (0.6-1.3); MAGNESIUM 2.3 mg/dL (1.8-2.4); POTASSIUM 3.6 mmol/L (3.5-5.1)
[2025-01-04] MEDS: AMLODIPINE 5 MG TABLET PO SCH (08:52)
[2025-01-04] MEDS: MAGNESIUM HYDROXIDE 30 ML LIQUID UDC PO PRN (17:27)
[2025-01-04] MEDS: CEphaleXIN 500 MG CAPSULE PO SCH (20:22)
[2025-01-05] VITALS (7 sets, daily range): BP systolic 116–142; BP diastolic 64–81; TEMP 97.8–98.6; O2SAT 96–100
[2025-01-05 06:38] LABS: BASOPHILS % (AUTO) 0.6 % (0.0-2.0); EOSINOPHILS # (AUTO) 0.4 K/uL (0.0-0.7); EOSINOPHILS % (AUTO) 6.7 % (0.0-7.0); HEMATOCRIT 40.4 % (31.2-41.9); HEMOGLOBIN 13.6 g/dL (10.9-14.3); LYMPHOCYTES # (AUTO) 1.8 K/uL (0.8-4.8); LYMPHOCYTES % (AUTO) 28.8 % (20.5-51.5); MEAN CORPUSCULAR HEMOGLOBIN 32.1 uug (24.7-32.8); MEAN CORPUSCULAR HGB CONC 34 g/dL (32.3-35.6); MEAN CORPUSCULAR VOLUME 95.8 fL (75.5-95.3); MONOCYTES # (AUTO) 0.7 K/uL (0.1-1.30); MONOCYTES % (AUTO) 11.1 % (0.0-11.0); NEUTROPHILS # (AUTO) 3.3 K/uL (1.8-8.9); NEUTROPHILS % (AUTO) 52.8 % (38.5-71.5); PLATELET COUNT (AUTO) 303 K/uL (179-408); RED BLOOD CELL COUNT(AUTO) 4.22 MIL/uL (3.63-4.92); RED CELL DISTRIBUTION WIDTH 13.9 % (12.3-17.7); WHITE BLOOD COUNT (AUTO) 6.3 K/uL (3.8-11.8)
[2025-01-05 07:02] LABS: DIFFERENTIAL COMMENT 1
[2025-01-05] MEDS: PANTOPRAZOLE SODIUM 40 MG VIAL IV SCH ×2 (10:28→22:01)
[2025-01-05 12:11] LABS: HEMATOCRIT 34.5 % (31.2-41.9); HEMOGLOBIN 11.8 g/dL (10.9-14.3)
[2025-01-06] VITALS (7 sets, daily range): BP systolic 110–145; BP diastolic 62–72; TEMP 97.8–98.5; O2SAT 94–97
[2025-01-06 06:57] LABS: BASOPHILS % (AUTO) 0.6 % (0.0-2.0); EOSINOPHILS # (AUTO) 0.3 K/uL (0.0-0.7); HEMATOCRIT 40.6 % (31.2-41.9); HEMOGLOBIN 13.5 g/dL (10.9-14.3); LYMPHOCYTES # (AUTO) 1.4 K/uL (0.8-4.8); LYMPHOCYTES % (AUTO) 27.6 % (20.5-51.5); MEAN CORPUSCULAR HEMOGLOBIN 31.6 uug (24.7-32.8); MEAN CORPUSCULAR HGB CONC 33 g/dL (32.3-35.6); MONOCYTES # (AUTO) 0.7 K/uL (0.1-1.30); MONOCYTES % (AUTO) 12.9 % (0.0-11.0); NEUTROPHILS # (AUTO) 2.8 K/uL (1.8-8.9); NEUTROPHILS % (AUTO) 53.9 % (38.5-71.5); PLATELET COUNT (AUTO) 282 K/uL (179-408); RED BLOOD CELL COUNT(AUTO) 4.28 MIL/uL (3.63-4.92); RED CELL DISTRIBUTION WIDTH 13.6 % (12.3-17.7); WHITE BLOOD COUNT (AUTO) 5.2 K/uL (3.8-11.8)
[2025-01-06 07:14] LABS: DIFFERENTIAL COMMENT 1
[2025-01-06] MEDS: PANTOPRAZOLE SODIUM 40 MG TABLET.DR PO SCH (16:35)
[2025-01-07] MEDS ORDERED: HYDROCODONE/APAP 5-325MG TABLET PO PRN (05:15)
[2025-01-07] MEDS ORDERED: MORPHINE SULFATE 2 MG/1 ML DISP.SYRIN IV PRN (05:15)
[2025-01-07 05:17] VITALS: O2SAT 96
[2025-01-07 06:00] VITALS: BP 137/71; TEMP 97.8; O2SAT 96
[2025-01-07 11:10] VITALS: BP 133/70; TEMP 97.5; O2SAT 96
[2025-01-07 14:59] VITALS: BP 134/82; TEMP 97.8; O2SAT 96
[2025-01-07 19:10] VITALS: BP 150/72; TEMP 98; O2SAT 98
[2025-01-08 00:34] VITALS: BP 139/71; TEMP 97.9; O2SAT 99
[2025-01-08 05:06] VITALS: BP 113/73; TEMP 97.7; O2SAT 97
[2025-01-08 08:00] VITALS: BP 134/64; TEMP 98.3; O2SAT 97
[2025-01-08 11:42] VITALS: BP 138/77; TEMP 97.3; O2SAT 96
[2025-01-08 15:02] VITALS: BP 106/64; TEMP 98.8; O2SAT 97
[2025-01-08 19:05] VITALS: BP 137/79; TEMP 98; O2SAT 97
[2025-01-08] MEDS: diphenhydrAMINE 25 MG CAP PO PRN (21:07)
[2025-01-09] MEDS: ZOLPIDEM 5 MG TABLET PO ONE (01:08)
[2025-01-09 05:36] VITALS: BP 127/76; TEMP 98.4; O2SAT 97
[2025-01-09 08:00] VITALS: BP 128/66; TEMP 97.7; O2SAT 96
[2025-01-09 11:07] VITALS: BP 130/71; TEMP 98.4; O2SAT 94
[2025-01-09 15:12] VITALS: BP 139/75; TEMP 97.8; O2SAT 100
[2025-01-09 19:05] VITALS: BP 131/72; TEMP 98.3; O2SAT 98
[2025-01-09 19:40] VITALS: BP 131/72; TEMP 98.3; O2SAT 98
[2025-01-10 05:11] VITALS: BP 142/65; TEMP 98.3; O2SAT 18
[2025-01-10 06:09] VITALS: BP 142/65; TEMP 98.3; O2SAT 99
[2025-01-10] MEDS ORDERED: PANT40TA49 PO (09:19)
[2025-01-10 11:44] VITALS: BP 142/73; TEMP 98; O2SAT 98
[2025-01-10 15:57] VITALS: BP 123/76; TEMP 97.8; O2SAT 97
[2025-01-10 17:26] VITALS: TEMP 98.1
== END 2025-01-10 17:45 | disposition home health service (06) | DRG 463 ==
LOC: ER 14:01 → TELE3 22:40 → MEDSURG3 01-04 09:56
PROVIDERS: ADMIT Nurse Practitioner Acute Care; ATTEND Nurse Practitioner Acute Care
DX: N39.0 Urinary tract infection, site not specified (principal); E44.0 Moderate protein-calorie malnutrition; E88.09 Other disorders of plasma-protein metabolism, not elsewhere classified; K92.2 Gastrointestinal hemorrhage, unspecified; E86.0 Dehydration; G35 Multiple sclerosis; Z88.2 Allergy status to sulfonamides; Z88.0 Allergy status to penicillin; F13.982 Sedative, hypnotic or anxiolytic use, unspecified with sedative, hypnotic or anxiolytic-induced sleep disorder; R53.81 Other malaise; R51.9 Headache, unspecified; B96.89 Other specified bacterial agents as the cause of diseases classified elsewhere; R32 Unspecified urinary incontinence; I10 Essential (primary) hypertension; Z79.899 Other long term (current) drug therapy; G62.9 Polyneuropathy, unspecified; G31.9 Degenerative disease of nervous system, unspecified
CPT/HCPCS: 36415; 70450; 71045; 80164; 83605; 83735; 84100; 84146; 84443; 85018; 85025; 85651; 85730; 86140; 87040; 87086; A4663; G0378; J0696; J1650; J1885; J2060; J2270; J2470; J7040; J7120; Q0163